=== PATIENT | male | born 1970 | race African-American/Black ===

== ENCOUNTER 2018-12-24 04:22 | Emergency (ER) | payer OTHER ==
[~2018-12-24] VITALS: Ht 177.8 cm; Wt 106.6 kg
[2018-12-24] MEDS ORDERED: PREDNISONE 20 M20 MG PO (05:39)
[2018-12-24] MEDS ORDERED: PEPCID20 MG PO (05:39)
[2018-12-24 05:51] VITALS: BP 171/86
== END 2018-12-24 05:51 | disposition home or self-care (01) ==
LOC: ER 04:22
DX: T78.3XXA Angioneurotic edema, initial encounter (principal)